=== PATIENT | female | born 1990 | race Caucasian/White ===

== ENCOUNTER → 2017-09-01 | Outpatient (CLI) | payer MEDICAID ==
[2017-09-01 08:29] LABS: Appearance,Urine Clear (Clear); Bilirubin,Urine Negative (Negative); Blood,Urine Negative (Negative); Color,Urine Yellow; Glucose,Urine (UA) Negative (Negative); HCT 36.5 % (34.0-46.0); HGB 12.6 gm/dL (11.4-16.0); Ketones,Urine Negative (Negative); Leukocyte Esterase,Urine Negative (Negative); MCH 31.1 pg (25.0-35.0); MCHC 34.5 g/dL (31.0-37.0); MCV 90.4 fL (80.0-100.0); Mean Platelet Volume 7.6; Nitrite,Urine Negative (Negative); PH, Urine 5.5 (5.0-8.0); Platelet Count 242 k/uL (150-450); Protein,Urine Trace (Negative); RBC 4.04 m/uL (3.80-5.40); RDW 12.3 % (11.5-15.5); Specific Gravity,Urine 1.029 (1.001-1.035); WBC 12.1 k/uL (3.8-10.6)
[2017-09-01 08:53] LABS: Glucose 71 mg/dL (74-99)
[2017-09-01 17:36] LABS: HIV AB P24 Non-Reactive (Non-Reactive); HIV P24 AG Non-Reactive (Non-Reactive)
[2017-09-02 05:05] LABS: Toxoplasma Antibody (IgG) <3.0 IU/mL (<7.2); Toxoplasma Antibody (IgM) <3.0 AU/mL (<8.0)
[2017-09-02 14:04] LABS: C. trachomatis,PCR Negative (Neg,Equiv); Chlamydia trachomatis Source Urine; N. gonorrhoeae,PCR Negative (Neg,Equiv); Neisseria Source Urine
== END | disposition home or self-care (01) ==
LOC: LABWHC1 07:17
PROVIDERS: ATTEND Obstetrics & Gynecology
DX: Z34.01 Encounter for supervision of normal first pregnancy, first trimester (principal); Z3A.00 Weeks of gestation of pregnancy not specified
CPT/HCPCS: 36415; 81003; 82565; 82947; 85027; 86592; 86762; 86777; 86778; 86850; 86900; 86901; 87086; 87340; 87390; 87491; 87591

== ENCOUNTER → 2017-10-06 | Outpatient (CLI) | payer MEDICAID ==
--- NOTE | 2017-10-06 11:11 | US ---
EXAMINATION TYPE: US OB anatomy transabd DATE OF EXAM: 10/06/2017 COMPARISON: NONE HISTORY: O36.62X0 Maternal care for excessive growth LGA TECHNIQUE: Transabdominal (TA) EXAM MEASUREMENTS: GESTATIONAL AGE / DATING Physician Established: (18 weeks/5 days) EDC: 03/04/18 Dates by LMP: (18 weeks/5 days) EDC: 03/04/18 Dates by First Scan: no prior scan Dates by Current Scan for: (18 weeks/2 days) EDC: 03/07/18 SURVEY IUP: Single PLACENTA: Anterior PREVIA: marginal to complete JACK: 15.5 cm Normal CERVICAL LENGTH (transabdominal: norm > 3.0cm): 4.6 cm BIOMETRY PRESENTATION: Breech LIE: Transverse lie with head maternal RT BPD: 4.2 cm 18 weeks / 5 days HC: 15.3 cm 18 weeks / 2 days AC: 13.1 cm 18 weeks / 4 days FL: 2.7 cm 18 weeks / 2 days ESTIMATED WEIGHT IN GRAMS: 241 grams ESTIMATED WEIGHT IN LBS/OZ: 0 lbs. 9 oz. WEIGHT PERCENTAGE BASED ON ESTABLISHED DATE: 30.6 % HC/AC: 1.17 Normal FL/AC: 17.78 Normal HEART RATE: 128 bpm RHYTHM: Normal ANATOMY SEEN (within normal limits): * Lateral Vent (< 1 cm) 0.6 cm * Cisterna Magna (< 1.1 cm) 0.3 cm * Nuchal Fold (< 0.6 cm) 0.3 cm * Cerebellum (varies with age) 1.7 cm Choroid Plexus (bilateral) Midline Falx Cavus Septi Pellucidi Four Chamber Heart - echogenic focus noted Outflow tracts: LVOT/RVOT Stomach Situs Nose / Lips Diaphragm Kidneys (bilateral) Bladder Cord Insert Three Vessel Cord Longitudinal Spine Transverse Spine Arms (bilateral) Legs (bilateral) Single viable IUP 18wks/2days with ROBERT of 03/07/18 . Marginal to complete placenta previa. Possible echogenic focus noted within 4 chamber heart. This has been associated with genetic anomalies. Consi jessika additional workup. IMPRESSION: Single intrauterine gestation estimated at 18 weeks 2 days gestation based on current ultrasound kane urements. This would've a calculated EDC of 03/07/2018. Cardiac activity measures 128 bpm. 2. Echogenic focus within the four-chamber heart view. This finding is been associated with genetic a nomalies. Consider additional workup. 3. Estimated weight based on established dating is in the 31st percentile.
== END | disposition home or self-care (01) ==
LOC: RADUSWWP 08:48
PROVIDERS: ATTEND Obstetrics & Gynecology
DX: O36.62X0 Maternal care for excessive fetal growth, second trimester, not applicable or unspecified (principal); Z3A.18 18 weeks gestation of pregnancy
CPT/HCPCS: 76811

== ENCOUNTER → 2017-10-21 | Outpatient (CLI) | payer MEDICAID ==
--- NOTE | 2017-10-21 09:52 | US ---
EXAMINATION TYPE: US OB limited DATE OF EXAM: 10/21/2017 COMPARISON: CLINICAL HISTORY: Z36 Follow up to abnormal u/s. Follow up EIF and Placenta EXAM PERFORMED: Transabdominal (TA) GESTATIONAL AGE / DATING Physician Established: (20 weeks/6 days) EDC: 03/04/2018 No growth performed on today?s study per ordering physician SURVEY PLACENTA: Anterior PREVIA: No Previa CERVICAL LENGTH (transabdominal: norm > 3.0cm): 4.1 cm PRESENTATION: Variable LIE: Transverse with head maternal Right HEART RATE: 129 bpm RHYTHM: Normal IMPRESSION: 1.EIF seen in left ventricle of the heart. Appropriate follow-up recommended 2. Tip of placenta is 3.6 cm away from cervical internal os.
== END | disposition home or self-care (01) ==
LOC: RADUSWWP 08:52
PROVIDERS: ATTEND Obstetrics & Gynecology
DX: Z36.9 Encounter for antenatal screening, unspecified (principal); Z3A.00 Weeks of gestation of pregnancy not specified
CPT/HCPCS: 76815

== ENCOUNTER → 2017-12-01 | Outpatient (CLI) | payer MEDICAID ==
[2017-12-01 09:15] LABS: HCT 35.6 % (34.0-46.0); HGB 11.5 gm/dL (11.4-16.0); MCH 29.8 pg (25.0-35.0); MCHC 32.3 g/dL (31.0-37.0); MCV 92.3 fL (80.0-100.0); Mean Platelet Volume 7.6; Platelet Count 225 k/uL (150-450); RBC 3.86 m/uL (3.80-5.40); RDW 13.4 % (11.5-15.5); WBC 10.1 k/uL (3.8-10.6)
== END | disposition home or self-care (01) ==
LOC: LABWHC1 07:53
PROVIDERS: ATTEND Obstetrics & Gynecology
DX: Z34.82 Encounter for supervision of other normal pregnancy, second trimester (principal); Z3A.00 Weeks of gestation of pregnancy not specified
CPT/HCPCS: 36415; 82950; 85027

== ENCOUNTER → 2017-12-04 | Outpatient (CLI) | payer MEDICAID ==
[2017-12-04 10:57] LABS: Glucose 3 Hour, Gest 127 mg/dL
== END ==
LOC: LABWHC1 06:59
PROVIDERS: ATTEND Obstetrics & Gynecology
DX: O99.810 Abnormal glucose complicating pregnancy (principal); Z3A.00 Weeks of gestation of pregnancy not specified
CPT/HCPCS: 36415; 82951; 82952

== ENCOUNTER → 2018-01-08 | Outpatient (CLI) | payer MEDICAID ==
--- NOTE | 2018-01-08 13:12 | US ---
EXAMINATION TYPE: US OB >= 14 wk fetus DATE OF EXAM: 01/08/2018 COMPARISON: 2017October 06, 2017 PT HAD HIGH RISK EVAL FOR HEART AT [facility] EXAM WAS NORMAL CLINICAL HISTORY: O36.63XO large for dates TECHNIQUE: Transabdominal (TA) GESTATIONAL AGE / DATING Physician Established: (32 weeks/0 days) EDC: 03/05/18 Dates by LMP: (32 weeks/0 days) EDC: 03/05/18 Dates by First Scan: (32 weeks/0 days) EDC: 03/05/18 Dates by Current Scan: (32 weeks/0 days) EDC: 03/05/18 Beta HCG (if available): na SURVEY IUP: Single PLACENTA: anterior PREVIA: No Previa JACK: 12 cm Normal CERVICAL LENGTH (transabdominal: norm > 3.0cm): 4.5 cm BIOMETRY PRESENTATION: Vertex LIE: Longitudinal BPD: 8.1 cm 32 weeks / 4 days HC: 28.8 cm 31 weeks / 5 days AC: 26.7 cm 31 weeks / 5 days FL: 6.4 cm 32 weeks / 1 days ESTIMATED WEIGHT IN GRAMS: 1798 grams ESTIMATED WEIGHT IN LBS/OZ: 3 lbs. 15 oz. WEIGHT PERCENTAGE BASED ON ESTABLISHED DATES: 27% HC/AC: 1.08 Normal FL/AC: 24 Normal HEART RATE: 142 bpm RHYTHM: Normal Single live intrauterine gestation is redemonstrated. Normal cephalad presentation to fetus is curren tly seen. There is no ultrasound evidence for placenta previa. Amniotic fluid index is within normal limits. Normal cephalad presentation to fetus is identified. heart rate is regular and within n ormal limits. biometry measurements are congruent and felt within normal limits. IMPRESSION: As above
== END | disposition home or self-care (01) ==
LOC: RADUSWWP 10:52
PROVIDERS: ATTEND Obstetrics & Gynecology
DX: O36.63X0 Maternal care for excessive fetal growth, third trimester, not applicable or unspecified (principal); Z3A.32 32 weeks gestation of pregnancy
CPT/HCPCS: 76805

== ENCOUNTER 2018-03-06 12:25 | Inpatient (IN) | payer MEDICAID ==
[2018-03-06] MEDS ORDERED: DINOPROSTONE 10 MG INSERT.ER VAGINAL ONE (12:51)
[2018-03-06 13:00] VITALS: RESP 16; BMI 26.4
[2018-03-06] MEDS: LACTATED RINGERS 1,000 ML IV SCH ×2 (13:26→21:10)
[2018-03-06] MEDS ORDERED: OXYTOCIN 10 UNIT/ML 1 ML VIAL IM PRN (15:22)
[2018-03-06] MEDS ORDERED: CARBOPROST TROMETHAMINE 250 MCG/ML 1 ML AMP IM PRN (15:22)
[2018-03-06] MEDS ORDERED: LIDOCAINE 0.5% (PF) 5 MG/ML (50 ML SDV) SQ PRN (15:22)
[2018-03-06] MEDS ORDERED: METHYLERGONOVINE 0.2 MG/ML 1 ML AMP IM PRN (15:22)
[2018-03-06] MEDS ORDERED: TERBUTALINE 1 MG/ML VIAL SQ PRN (15:22)
[2018-03-06] MEDS ORDERED: OXYTOCIN 20 UNITS/1000 ML NS 1,000 ML IV SCH (15:30)
[2018-03-06 15:37] LABS: Basophils % (A) 0 %; Eosinophils # (A) 0.1 k/uL (0-0.7); Eosinophils % (A) 1 %; HCT 40.5 % (34.0-46.0); HGB 13.3 gm/dL (11.4-16.0); Lymphocytes # (A) 1.7 k/uL (1.0-4.8); Lymphocytes % (A) 16 %; MCH 30.6 pg (25.0-35.0); MCHC 32.8 g/dL (31.0-37.0); MCV 93.3 fL (80.0-100.0); Mean Platelet Volume 8.5; Monocytes # (A) 0.5 k/uL (0-1.0); Monocytes % (A) 5 %; Neutrophils # (A) 8.3 k/uL (1.3-7.7); Neutrophils % (A) 77 %; Platelet Count 208 k/uL (150-450); RBC 4.34 m/uL (3.80-5.40); RDW 13.1 % (11.5-15.5); WBC 10.9 k/uL (3.8-10.6)
[2018-03-06] MEDS ORDERED: ROPIVACAINE 5MG/ML 20ML VIAL ONE (16:20)
[2018-03-06] MEDS ORDERED: fentaNYL (PF) 50 MCG/ML 5 ML AMP ONE (16:20)
[2018-03-06] MEDS ORDERED: SODIUM CHLORIDE 0.9% 100 ML BAG ONE (16:20)
[2018-03-06] MEDS ORDERED: diphenhydrAMINE 25 MG CAP PO PRN (22:31)
[2018-03-06] MEDS ORDERED: diphenhydrAMINE 50 MG/ML 1 ML VIAL IVP PRN ×2 (22:31)
[2018-03-06] MEDS ORDERED: LANOLIN CREAM 5 GM TUBE TOPICAL PRN (22:31)
[2018-03-06] MEDS ORDERED: ZOLPIDEM 5 MG TAB PO PRN (22:31)
[2018-03-06] MEDS ORDERED: BENZOCAINE/MENTHOL SPRAY 1 GM/SPRAY AEROSOL TOPICAL PRN (22:31)
[2018-03-06] MEDS ORDERED: MEASLES-MUMPS-RUBELLA VACC/PF 12,500 UNIT/0.5 ML VIAL SQ ONE (22:31)
[2018-03-06] MEDS ORDERED: ACETAMINOPHEN TAB 325 MG TAB PO PRN (22:31)
[2018-03-06] MEDS ORDERED: HYDROCORTISONE 2.5% RECTAL CREAM 30 GM TUBE RECTAL PRN (22:31)
[2018-03-06] MEDS ORDERED: SIMETHICONE 80 MG CHEWABLE PO PRN (22:31)
[2018-03-06] MEDS ORDERED: diphenhydrAMINE 50 MG CAP PO PRN (22:31)
[2018-03-06] MEDS ORDERED: WITCH HAZEL 1 EACH MED..PAD TOPICAL PRN (22:31)
--- NOTE | 2018-03-06 22:34 | P.HPOB ---
History of Present Illness H&P Date: 03/06/18 Chief Complaint: Intrauterine at term: Oligohydramnios Patient is a 28-year-old at 40 weeks gestation who for last few weeks has had borderline oligohydramnios during that time she is receiving nonstress tests and serial ultrasounds to verify stability. We did discuss done a couple of occasions induction but she was relatively adamant less she was truly oligohydramnios and she did not want to be induced. Today however on her ultrasound her JACK was 5 and therefore decision to move forward with induction was made. At initial presentation she was dilated to 1-2 cm 80% effaced and -2 station. Artificial rupture membranes was performed and clear fluid is noted. Her course otherwise was unremarkable and she was feeling well at this time. Pertinent labs did include O+ blood type, Rh antibody was negative. Rubella nonimmune. Hepatitis B surface antigen RPR and GBS were all negative. We'll plan augmentation of labor and she expects to use an epidural for analgesia. Past Medical History Past Medical History: No Reported History History of Any Multi-Drug Resistant Organisms: None Reported Past Surgical History: Orthopedic Surgery Additional Past Surgical History / Comment(s): right shoulder Past Anesthesia/Blood Transfusion Reactions: No Reported Reaction Past Psychological History: No Psychological Hx Reported Smoking Status: Never smoker Past Alcohol Use History: Occasional Past Drug Use History: None Reported - Past Family History Mother Additional Family Medical History / Comment(s): breast cancer, sister breast cancer Medications and Allergies Home Medications Medication Instructions Recorded Confirmed Type Ibuprofen [Motrin] 600 mg PO Q6HR PRN #20 tab 03/01/16 Rx Tamsulosin HCl [Flomax] 0.4 mg PO DAILY #10 cap 03/01/16 Rx Allergies Allergy/AdvReac Type Severity Reaction Status Date / Time No Known Allergies Allergy Verified 03/01/16 18:56 Exam Osteopathic Statement: *. No significant issues noted on an osteopathic structural exam other than those noted in the History and Physical/Consult. Vital Signs Temp Pulse Resp BP 03/06/18 12:49 98.6 F 94 16 120/93 Intake and Output 03/06/18 03/06/18 03/06/18 06:59 14:59 22:59 Intake Total 250 Balance 250 Intake: Oral 250 Other: # Voids 1 Weight 78.925 kg - OBG Physical Exam Breast: both: normal (no masses) Abdomen: bowel sounds normal, no diffuse tenderness, no bruit present, no guarding noted, no hepatomegaly, no splenomegaly, no mass Vulva: both: normal Vagina: normal moisture, no discharge Cervix: no lesion, no discharge Uterus: normal size, normal contour Adnexa: both: normal Anus/Rectum: normal perianal skin, no rectal mass, no hemorrhoids, heme negative Results Result Diagrams: 03/06/18 13:20 Abnormal Lab Results - Last 24 Hours (Table) 03/06/18 Range/Units 13:20 WBC 10.9 H (3.8-10.6) k/uL Neutrophils # 8.3 H (1.3-7.7) k/uL
--- NOTE | 2018-03-06 22:35 | P.PROBDLV ---
Vaginal Delivery Note - . Vaginal Delivery Note: Patient progressed to complete and pushed with spontaneous vaginal delivery of a viable female over an intact perineum. Falling deliver the head a nuchal cord 1 was noted but the baby was delivered through the nuchal cord with gentle downward and upward traction. Once baby was delivered mouth nares were bulb suctioned and baby was placed on mother's abdomen where the umbilical cord was allowed to pulsate for 40 seconds prior to clamping and cutting. Once this was accomplished nursery personnel was present to assume care. Placenta was then delivered intact and Pitocin was added to the IV. scores were 8 and 9 at one and 5 minutes respectively and the weight was 6 lbs. 11 oz. Both mother and baby are stable on delivery.
[2018-03-07] MEDS: SENNOSIDES-DOCUSATE SODIUM 1 EACH TAB PO SCH ×2 (09:24→20:49)
[2018-03-07] MEDS: IBUPROFEN 600 MG TAB PO PRN (11:59)
--- NOTE | 2018-03-07 12:32 | P.PNOBGVD ---
Subjective - Subjective Principal diagnosis: day 1 Interval history: Overall doing very well. She is ambulating, voiding and tolerating her diet. She voices no complaint. Vital signs are stable and afebrile. Patient reports: Reports appetite normal [place]: doing well Objective - Latest Vital Signs Latest vital signs: Vital Signs Temp Pulse Pulse Resp BP 03/07/18 12:00 98.2 F 56 L 16 112/62 03/07/18 08:00 98.5 F 51 L 16 118/81 03/07/18 04:00 98.6 F 62 16 110/63 03/07/18 00:34 98 F 69 16 108/70 03/07/18 00:04 79 16 105/64 03/06/18 23:34 62 16 114/79 03/06/18 23:19 65 16 113/79 03/06/18 23:04 77 16 113/75 03/06/18 22:49 96 16 126/69 03/06/18 22:34 90 16 109/67 03/06/18 12:49 98.6 F 94 16 120/93 Intake and Output 03/06/18 03/07/18 03/07/18 22:59 06:59 14:59 Intake Total 1000.0 Output Total 100 Balance 900.0 Intake: Intake, IV Titration 1000.0 Amount Oxytocin 20 Units/1000 ml 1000.0 Ns 1,000 ml @ 1 MILLIUNIT/MIN 3 mls/hr IV .Q24H [facility] Rx#:[id number] Output: Urine 100 Other: # Voids 1 1 - Exam Lungs: bilateral: normal Chest: Normal S1, Normal S2 Extremities: Present: normal Abdomen: Present: normal appearance, soft Uterus: Present: normal, firm - Labs Labs: Abnormal Lab Results - Last 24 Hours (Table) 03/06/18 Range/Units 13:20 WBC 10.9 H (3.8-10.6) k/uL Neutrophils # 8.3 H (1.3-7.7) k/uL
[2018-03-08] MEDS: IBUPROFEN 600 MG TAB PO PRN (04:42)
[2018-03-08 08:35] VITALS: BP 111/72; PULSE 56; TEMP 98.1
[2018-03-08] MEDS: SENNOSIDES-DOCUSATE SODIUM 1 EACH TAB PO SCH (08:38)
[2018-03-08] MEDS ORDERED: MEASLES-MUMPS-RUBELLA VACC/PF 12,500 UNIT/0.5 ML VIAL SQ ONE (09:46)
--- NOTE | 2018-03-08 10:10 | P.DS ---
Providers Date of admission: 03/06/18 12:25 Expected date of discharge: 03/08/18 Attending physician: Andres Root Primary care physician: Stated None Hospital Course: Patient is doing very well day 2. She is ambulating, voiding and she is tolerating her diet. She voices no complaint. Vital signs are stable and afebrile. Heart regular, lungs clear, extremities without pain. Abdomen is soft uterus is firm and lochia is reported be light. Assessment day 2. Plan discharged home follow me in 6 weeks. All other questions were answered the patient prior discharge and she is stable for discharge at this time. Patient Condition at Discharge: Good Plan - Discharge Summary Discharge Rx Participant: Yes New Discharge Prescriptions: No Action RX: Ibuprofen [Motrin] 600 mg PO Q6HR PRN #20 tab PRN Reason: Pain Tamsulosin HCl [Flomax] 0.4 mg PO DAILY #10 cap Discharge Medication List RX: Ibuprofen [Motrin] 600 mg PO Q6HR PRN #20 tab 03/01/16 [Rx] Tamsulosin HCl [Flomax] 0.4 mg PO DAILY #10 cap 03/01/16 [Rx] Follow up Appointment(s)/Referral(s): Andres Root DO [Doctor of Osteopathic Medicine] - 1 Week Activity/Diet/Wound Care/Special Instructions: No heavy lifting, limit stairs and driving, and pelvic rest. If any high temperatures, heavy bleeding, severe pain call my office Discharge Disposition: HOME SELF-CARE
== END 2018-03-08 12:07 | disposition home or self-care (01) | DRG 807 ==
LOC: 4FBP 12:25
PROVIDERS: ADMIT Obstetrics & Gynecology; ATTEND Obstetrics & Gynecology
PROC: 10907ZC Drainage of Amniotic Fluid, Therapeutic from Products of Conception, Via Natural or Artificial Opening (ICD-10-PCS; principal; 2018-03-06)
PROC: 10E0XZZ Delivery of Products of Conception, External Approach (ICD-10-PCS; principal; 2018-03-06)
PROC: 3E033VJ Introduction of Other Hormone into Peripheral Vein, Percutaneous Approach (ICD-10-PCS; principal; 2018-03-06)
PROC: 00HU33Z Insertion of Infusion Device into Spinal Canal, Percutaneous Approach (ICD-10-PCS; principal; 2018-03-06)
PROC: 3E0R3NZ Introduction of Analgesics, Hypnotics, Sedatives into Spinal Canal, Percutaneous Approach (ICD-10-PCS; principal; 2018-03-06)
DX: O41.00X0 Oligohydramnios, unspecified trimester, not applicable or unspecified (principal); Z37.0 Single live birth; O69.81X0 Labor and delivery complicated by cord around neck, without compression, not applicable or unspecified; Z3A.40 40 weeks gestation of pregnancy; Z79.1 Long term (current) use of non-steroidal anti-inflammatories (NSAID); O48.0 Post-term pregnancy
CPT/HCPCS: 85025; 86850; 86900; 86901; 88307; 90707

== ENCOUNTER → 2018-03-06 | Outpatient (CLI) | payer MEDICAID ==
--- NOTE | 2018-03-06 14:45 | US ---
EXAMINATION TYPE: US OB >= 14 wk fetus DATE OF EXAM: 03/06/2018 COMPARISON: US's CLINICAL HISTORY: O48.0 POST DATE TECHNIQUE: Transabdominal (TA) GESTATIONAL AGE / DATING Physician Established: (40 weeks/2 days) EDC: 03/04/2018 Dates by LMP: (40 weeks/2 days) EDC: 03/04/2018 Dates by First Scan: (40 weeks/2 days) EDC: 03/04/2018 Dates by Current Scan: (37 weeks/2 days) EDC: 03/25/2018 SURVEY IUP: Single PLACENTA: Anterior PREVIA: No Previa JACK: 5.0 cm Oligohydramnios CERVICAL LENGTH (transabdominal: norm > 3.0cm): 3.9 cm BIOMETRY PRESENTATION: Vertex BPD: 9.1 cm 36 weeks / 6 days HC: 32.7 cm 37 weeks / 0 days AC: 34.2 cm 38 weeks / 1 days FL: 7.5 cm 38 weeks / 1 days ESTIMATED WEIGHT IN GRAMS: 3323 grams ESTIMATED WEIGHT IN LBS/OZ: 7 lbs. 5 oz. WEIGHT PERCENTAGE BASED ON ESTABLISHED DATES: 22.9% HC/AC: 0.95 Normal FL/AC: 21.8 Normal HEART RATE: 157 bpm RHYTHM: Normal IMPRESSION: 1. Single intrauterine gestation estimated at 37 weeks 2 days gestation based on the current ultrasou nd measurements. Correlate this with the physician established dating of 40 weeks 2 days gestation. 2. Estimated weight based on established dates is in the 23rd percentile. 3323 g. 3. Cardiac activity measures 157 bpm.
== END | disposition home or self-care (01) ==
LOC: RADUSWWP 10:29
PROVIDERS: ATTEND Obstetrics & Gynecology
DX: O48.0 Post-term pregnancy (principal); Z3A.37 37 weeks gestation of pregnancy
CPT/HCPCS: 76805

== ENCOUNTER → 2019-03-11 | Outpatient (CLI) | payer MEDICAID ==
[2019-03-11 14:18] LABS: Basophils # (A) 0.1 k/uL (0-0.2); Basophils % (A) 1 %; Eosinophils # (A) 0.4 k/uL (0-0.7); Eosinophils % (A) 4 %; HCT 42.2 % (34.0-46.0); HGB 13.6 gm/dL (11.4-16.0); Lymphocytes % (A) 20 %; MCH 30.5 pg (25.0-35.0); MCHC 32.2 g/dL (31.0-37.0); MCV 94.7 fL (80.0-100.0); Mean Platelet Volume 7.3; Monocytes # (A) 0.6 k/uL (0-1.0); Monocytes % (A) 6 %; Neutrophils % (A) 69 %; Platelet Count 240 k/uL (150-450); RBC 4.45 m/uL (3.80-5.40); RDW 12.1 % (11.5-15.5); WBC 10.1 k/uL (3.8-10.6)
[2019-03-11 20:24] LABS: African American GFR (CKD) 114.7 (60.0-200.0); Albumin 4.1 g/dL (3.80-4.90); Albumin/Globulin Ratio 1.86 (1.60-3.17); Anion Gap 10.4 mmol/L (4.00-12.00); BUN/Creat Ratio 12.5 Ratio (12.00-20.00); Calcium 9.1 mg/dL (8.7-10.3); Carbon Dioxide 22.6 mmol/L (21.6-31.8); Chol/HDL Ratio 2.17; Globulin 2.2 g/dL (1.6-3.3); LDL Cholesterol,Calculated 63.2 mg/dL (0.0-131.0); Potassium 4.1 mmol/L (3.5-5.5); Total Bilirubin 0.5 mg/dL (0.2-1.2); Total Protein 6.3 g/dL (6.2-8.2); VLDL Calculation 17.8 mg/dL (5.00-40.00)
== END | disposition home or self-care (01) ==
LOC: LABWHC1 12:55
PROVIDERS: ATTEND Nurse Practitioner Family
DX: Z00.00 Encounter for general adult medical examination without abnormal findings (principal); F41.1 Generalized anxiety disorder
CPT/HCPCS: 36415; 80053; 80061; 84439; 84443; 85025

== ENCOUNTER → 2019-04-22 | Outpatient (CLI) | payer MEDICAID ==
--- NOTE | 2019-04-22 09:41 | US ---
EXAMINATION TYPE: Transabdominal DATE OF EXAM: 04/22/2019 8:53 AM COMPARISON: NONE CLINICAL HISTORY: Z36 confirm dates. confirm dates EXAM PERFORMED: Transabdominal (TA) EXAM MEASUREMENTS: GESTATIONAL AGE / DATING Physician Established: Not yet established Dates by LMP: (11 weeks/0 days) EDC: 11/11/19 Dates by First Scan: No previous this is first scan Dates by Current Scan for: (11 weeks/4 days) EDC: 11/07/19 MATERNAL ANATOMY Uterus: 11.9 x 5.9 x 8.8cm Right Ovary: 3.1 x 1.3 x 1.2cm Left Ovary: 2.8 x 1.9 x 1.3cm Post CDS / Adnexa: appears wnl Presence of free fluid: no Presence of corpus luteal cyst: yes, left ovary = 2.0 x 1.3 x 1.2cm GESTATION / SURVEY CRL: 4.7cm (11 weeks/4 days) Yolk Sac (normal less than 6mm): not seen Heart Rate: 162 bpm Rhythm: Normal IUP: Viable IUP Date of LMP: 02/04/19 Beta HcG (if available): Not available at this time Single viable IUP 11wks/4days with ROBERT of 11/07/19. Corpus luteum left ovary IMPRESSION: Single viable intrauterine corresponding to ultrasound age of 11 weeks 4 days w ith estimated date of delivery 11/07/2019 by today's exam.
== END | disposition home or self-care (01) ==
LOC: RADUSWWP 08:38
PROVIDERS: ATTEND Obstetrics & Gynecology
DX: Z36.89 Encounter for other specified antenatal screening (principal); Z3A.11 11 weeks gestation of pregnancy
CPT/HCPCS: 76801

== ENCOUNTER → 2019-04-27 | Outpatient (CLI) | payer MEDICAID ==
[2019-04-27 08:08] LABS: HCT 38.9 % (34.0-46.0); HGB 12.8 gm/dL (11.4-16.0); MCH 30.2 pg (25.0-35.0); MCHC 32.9 g/dL (31.0-37.0); MCV 91.9 fL (80.0-100.0); Mean Platelet Volume 7.9; Platelet Count 246 k/uL (150-450); RBC 4.23 m/uL (3.80-5.40); RDW 12.1 % (11.5-15.5); WBC 10.7 k/uL (3.8-10.6)
[2019-04-27 11:49] LABS: African American GFR (CKD) 114.7 (60.0-200.0); Non-African American GFR(CKD) 98.9 (60.0-200.0)
[2019-04-27 12:14] LABS: Hepatitis B Surface Antigen Non-Reactive (Non-Reactive)
[2019-04-27 13:14] LABS: HIV 1 AB Non-Reactive (Non-Reactive); HIV 2 AB Non-Reactive (Non-Reactive); HIV AB P24 Non-Reactive (Non-Reactive); HIV P24 AG Non-Reactive (Non-Reactive)
[2019-04-29 03:14] LABS: Toxoplasma Antibody (IgG) <3.0 IU/mL (<7.2); Toxoplasma Antibody (IgM) <3.0 AU/mL (<8.0)
== END | disposition home or self-care (01) ==
LOC: LABWHC1 07:15
PROVIDERS: ATTEND Obstetrics & Gynecology
DX: O26.811 Pregnancy related exhaustion and fatigue, first trimester (principal); Z3A.00 Weeks of gestation of pregnancy not specified
CPT/HCPCS: 36415; 82565; 82947; 85027; 86762; 86777; 86778; 86780; 86850; 86870; 86880; 86900; 86901; 87340; 87390; 87491; 87591

== ENCOUNTER → 2019-06-17 | Outpatient (CLI) | payer MEDICAID ==
--- NOTE | 2019-06-17 13:15 | US ---
EXAMINATION TYPE: US OB anatomy transabd DATE OF EXAM: 06/17/2019 COMPARISON: 04/22/2019 HISTORY: 29-year-old female O36.62X0 Large for dates 2nd trimester. Anatomy scan TECHNIQUE: Transabdominal (TA) FINDINGS: EXAM MEASUREMENTS: GESTATIONAL AGE / DATING Physician Established: (19 weeks/0 days) EDC: 11/11/2019 Dates by LMP: Unknown Dates by First Scan: (19 weeks/4 days) EDC: 11/07/2019 Dates by Current Scan for: (19 weeks/2 days) EDC: 11/09/2019 SURVEY IUP: Single PLACENTA: Posterior PREVIA: No previa JACK: 12.4 cm Normal CERVICAL LENGTH (transabdominal: norm > 3.0cm): 3.2 cm BIOMETRY PRESENTATION: Breech BPD: 4.3 cm 19 weeks / 1 days HC: 15.3 cm 18 weeks / 3 days AC: 13.9 cm 19 weeks / 3 days FL: 3.2 cm 20 weeks / 0 days ESTIMATED WEIGHT IN GRAMS: 294 grams ESTIMATED WEIGHT IN LBS/OZ: 0 lbs. 10 oz. WEIGHT PERCENTAGE BASED ON ESTABLISHED DATE: 73 % HC/AC: 1.10 Normal FL/AC: 23 Normal HEART RATE: 142 bpm RHYTHM: Normal ANATOMY SEEN (within normal limits): Lateral Vent (< 1 cm) 0.7 cm Cisterna Magna (< 1.1 cm) 0.3 cm Nuchal Fold (< 0.6 cm) 0.3 cm Cerebellum (varies with age) 1.9 cm Choroid Plexus (bilateral) Midline Falx Cavus Septi Pellucidi Four Chamber Heart Outflow tracts: LVOT/RVOT Stomach Situs Nose / Lips Diaphragm Kidneys (bilateral)= 3mm renal pelvis bilaterally -- follow-up can be considered. Bladder Cord Insert Three Vessel Cord Longitudinal Spine Transverse Spine Arms (bilateral) Legs (bilateral) Stock Associate notes: Single, viable IUP/ Renal pelvis 3mm bilaterally, otherwise unremarkable exam IMPRESSION: 1. Single intrauterine with established gestational age of 19 weeks 0 days. Current ultraso und biometry is concordant (19 weeks 2 days) placing the child at the 73rd percentile for weight. 2. Prominent bilateral renal pelves at 3 mm each. This falls within acceptable limits (normal <4 mm). Follow-up can be considered to reassess. 3. Otherwise, the anatomy appears normal.
== END | disposition home or self-care (01) ==
LOC: RADUSWWP 09:10
PROVIDERS: ATTEND Obstetrics & Gynecology
DX: O36.62X1 Maternal care for excessive fetal growth, second trimester, fetus 1 (principal); Z3A.19 19 weeks gestation of pregnancy
CPT/HCPCS: 76811

== ENCOUNTER 2019-07-29 18:30 | Emergency (ER) | payer MEDICAID ==
[2019-07-29 18:38] VITALS: BP 124/77; PULSE 88; RESP 20; TEMP 97.8
[2019-07-29 19:14] LABS: Basophils % (A) 0 %; Eosinophils # (A) 0.2 k/uL (0-0.7); Eosinophils % (A) 1 %; HCT 39.3 % (34.0-46.0); HGB 12.9 gm/dL (11.4-16.0); Lymphocytes # (A) 1.5 k/uL (1.0-4.8); Lymphocytes % (A) 12 %; MCH 30.6 pg (25.0-35.0); MCHC 32.9 g/dL (31.0-37.0); MCV 92.9 fL (80.0-100.0); Mean Platelet Volume 7.5; Monocytes # (A) 0.6 k/uL (0-1.0); Monocytes % (A) 5 %; Neutrophils # (A) 9.7 k/uL (1.3-7.7); Neutrophils % (A) 79 %; Platelet Count 247 k/uL (150-450); RBC 4.23 m/uL (3.80-5.40); RDW 13.4 % (11.5-15.5); WBC 12.3 k/uL (3.8-10.6)
[2019-07-29 19:16] LABS: Appearance,Urine Cloudy (Clear); Bacteria,Urine Occasional /hpf; Bilirubin,Urine Negative (Negative); Blood,Urine Negative (Negative); Color,Urine Light Yellow; Glucose,Urine (UA) Negative (Negative); Ketones,Urine Negative (Negative); Leukocyte Esterase,Urine Moderate (Negative); Mucus,Urine Rare /hpf; Nitrite,Urine Negative (Negative); PH, Urine 6.5 (5.0-8.0); Protein,Urine Negative (Negative); RBC,Urine 3 /hpf (0-5); Specific Gravity,Urine 1.007 (1.001-1.035); Squamous Epithelial Cell,Urine 23 /hpf (0-4); Urobilinogen,Urine <2.0 mg/dL (<2.0); WBC,Urine 5 /hpf (0-5)
[2019-07-29 19:23] LABS: ALT 15 U/L (4-34); AST 23 U/L (14-36); African American GFR (CKD) >90 (>60 ml/min/1.73 sqM); Albumin 3.5 g/dL (3.5-5.0); Alkaline Phosphatase 60 U/L (38-126); Anion Gap 7 mmol/L; Blood Urea Nitrogen 7 mg/dL (7-17); Calcium 8.6 mg/dL (8.4-10.2); Carbon Dioxide 23 mmol/L (22-30); Chloride 105 mmol/L (98-107); Glucose 87 mg/dL (74-99); Non-African American GFR(CKD) >90 (>60 ml/min/1.73 sqM); Potassium 3.9 mmol/L (3.5-5.1); Sodium 135 mmol/L (137-145); Total Bilirubin 0.2 mg/dL (0.2-1.3); Total Protein 6.5 g/dL (6.3-8.2)
[2019-07-29] MEDS ORDERED: cefTRIAXone IN SWFI 1,000 MG/10 ML SYRINGE IVP STA (19:41)
--- NOTE | 2019-07-29 19:45 | ED ---
General Adult HPI - General Chief complaint: Abdominal Pain Stated complaint: 24wks preg, rt sided flank pain Time Seen by Provider: 07/29/19 18:39 Source: patient Mode of arrival: ambulatory Limitations: no limitations - History of Present Illness Initial comments: Patient is a 29-year-old female, currently 24 weeks , presenting to emergency Department with complaints of right flank pain has been going on for 3 days. Patient states the first 2 days the pain was intermittent and then today has been very constant. She does admit to increasing urinary frequency, urgency, dysuria. Denies history of kidney stones. Patient rates pain approx imately 5/10. She states she took some Tylenol earlier today. She did have one episode of vomiting yesterday. No nausea or vomiting today. She denies fever, chills, abdominal pain, vaginal bleeding. Her TECHNICAL PUBLICATIONS MANAGER is Dr. Root. Her has been uncomplicated thus far. Upon arrival to the ER, her vitals are stable. - Related Data Home Medications Medication Instructions Recorded Confirmed Lpp-Aosl-Sdifh Acid 1 cap PO DAILY 07/29/19 07/29/19 [-U Capsule (formulary)] Previous Rx's Medication Instructions Recorded Cephalexin [Keflex] 500 mg PO BID 7 Days #14 cap 07/29/19 Allergies Allergy/AdvReac Type Severity Reaction Status Date / Time No Known Allergies Allergy Verified 07/29/19 19:42 Review of Systems ROS Statement: Those systems with pertinent positive or pertinent negative responses have been documented in the HPI. ROS Other: All systems not noted in ROS Statement are negative. Past Medical History Past Medical History: No Reported History History of Any Multi-Drug Resistant Organisms: None Reported Past Surgical History: Orthopedic Surgery Additional Past Surgical History / Comment(s): right shoulder Past Anesthesia/Blood Transfusion Reactions: No Reported Reaction Past Psychological History: No Psychological Hx Reported Smoking Status: Never smoker Past Alcohol Use History: Occasional Past Drug Use History: None Reported - Past Family History Mother Additional Family Medical History / Comment(s): breast cancer, sister breast cancer General Exam - General Exam Comments Initial Comments: GENERAL: Well-appearing, well-nourished and in no acute distress. HEAD: Atraumatic, normocephalic. EYES: Pupils equal round and reactive to light, extraocular movements intact, sclera anicteric, conjunctiva are normal. ENT: TMs normal, nares patent, oropharynx clear without exudates. Moist mucous membranes. NECK: Normal range of motion, supple without lymphadenopathy or JVD. LUNGS: Breath sounds clear to auscultation bilaterally and equal. No wheezes rales or rhonchi. HEART: Regular rate and rhythm without murmurs, rubs or gallops. ABDOMEN: Soft, nontender, normoactive bowel sounds. No guarding, no rebound. No masses appreciated. Mild right flank pain. : Deferred EXTREMITIES: Normal range of motion, no pitting or edema. No clubbing or cyanosis. NEUROLOGICAL: Normal speech, normal gait. PSYCH: Normal mood, normal affect. SKIN: Warm, Dry, normal turgor, no rashes or lesions noted. Limitations: no limitations Course Vital Signs 07/29/19 18:36 Temperature 97.8 F Pulse Rate 88 Respiratory 20 Rate Blood Pressure 124/77 O2 Sat by Pulse 100 Oximetry Medical Decision Making - Medical Decision Making Patient is a 29-year-old female presenting with right flank pain 3 days. Vital signs are stable. Patient is currently 24 weeks with no complications thus far. No abdominal pain, no vaginal bleeding. Lab work shows leukocytosis at 12.3. Urine does show positive for bacteria. Urine culture is pending. heart tones are normal. I discussed with patient this is most likely a UTI. There is no blood in the urine to indicate kidney stone at this time. Kidney function is normal. Patient will be given dose of Rocephin in the ER and will be continued on Keflex outpatient. Patient is agreement this plan of care. Return parameters were discussed with the patient and she verbalized understanding. - Lab Data Result diagrams: 07/29/19 19:07/29/19 19: Lab Results 07/29/19 07/29/19 07/29/19 Range/Units 19: 19: 19: WBC 12.3 H (3.8-10.6) k/uL RBC 4.23 (3.80-5.40) m/uL Hgb 12.9 (11.4-16.0) gm/dL Hct 39.3 (34.0-46.0) % MCV 92.9 (80.0-100.0) fL MCH 30.6 (25.0-35.0) pg MCHC 32.9 (31.0-37.0) g/dL RDW 13.4 (11.5-15.5) % Plt Count 247 (150-450) k/uL Neutrophils % 79 % Lymphocytes % 12 % Monocytes % 5 % Eosinophils % 1 % Basophils % 0 % Neutrophils # 9.7 H (1.3-7.7) k/uL Lymphocytes # 1.5 (1.0-4.8) k/uL Monocytes # 0.6 (0-1.0) k/uL Eosinophils # 0.2 (0-0.7) k/uL Basophils # 0.0 (0-0.2) k/uL Sodium 135 L (137-145) mmol/L Potassium 3.9 (3.5-5.1) mmol/L Chloride 105 (98-107) mmol/L Carbon Dioxide 23 (22-30) mmol/L Anion Gap 7 mmol/L BUN 7 (7-17) mg/dL Creatinine 0.57 (0.52-1.04) mg/dL Est GFR (CKD-EPI)AfAm >90 (>60 ml/min/1.73 sqM) Est GFR (CKD-EPI)NonAf >90 (>60 ml/min/1.73 sqM) Glucose 87 (74-99) mg/dL Calcium 8.6 (8.4-10.2) mg/dL Total Bilirubin 0.2 (0.2-1.3) mg/dL AST 23 (14-36) U/L ALT 15 (4-34) U/L Alkaline Phosphatase 60 (38-126) U/L Total Protein 6.5 (6.3-8.2) g/dL Albumin 3.5 (3.5-5.0) g/dL Urine Color Light Yellow Urine Appearance Cloudy H (Clear) Urine pH 6.5 (5.0-8.0) Ur Specific [place] 1.007 (1.001-1.035) Urine Protein Negative (Negative) Urine Glucose (UA) Negative (Negative) Urine Ketones Negative (Negative) Urine Blood Negative (Negative) Urine Nitrite Negative (Negative) Urine Bilirubin Negative (Negative) Urine Urobilinogen <2.0 (<2.0) mg/dL Ur Leukocyte Esterase Moderate H (Negative) Urine RBC 3 (0-5) /hpf Urine WBC 5 (0-5) /hpf Ur Squamous Epith Cells 23 H (0-4) /hpf Urine Bacteria Occasional H (None) /hpf Urine Mucus Rare H (None) /hpf Disposition Clinical Impression: Right flank pain, UTI (urinary tract infection) Disposition: HOME SELF-CARE Condition: Stable Instructions (If sedation given, give patient instructions): Urinary Tract Infection in (ED) Additional Instructions: Please return to the Emergency Department if symptoms worsen or any other concerns. Take antibiotic as prescribed. May take Tylenol for discomfort. Make sure to increase fluid intake. Follow-up with TECHNICAL PUBLICATIONS MANAGER as discussed. Prescriptions: Cephalexin [Keflex] 500 mg PO BID 7 Days #14 cap Is patient prescribed a controlled substance at d/c from ED?: No Referrals: Bandar Calderón MD [Primary Care Provider] - 1-2 days
== END 2019-07-29 20:17 | disposition home or self-care (01) ==
LOC: EC 18:30
DX: O23.42 Unspecified infection of urinary tract in pregnancy, second trimester (principal); Z3A.24 24 weeks gestation of pregnancy
CPT/HCPCS: 36415; 80053; 85025; 81001; 99284; 96374; J0696

== ENCOUNTER → 2019-08-13 | Outpatient (CLI) | payer MEDICAID | END | disposition home or self-care (01) | LOC: LABWHC1 10:58 | PROVIDERS: ATTEND Obstetrics & Gynecology | DX: Z53.9 Procedure and treatment not carried out, unspecified reason (principal) ==

== ENCOUNTER → 2019-08-16 | Outpatient (CLI) | payer MEDICAID ==
[2019-08-16 09:32] LABS: HCT 33.8 % (34.0-46.0); HGB 11.3 gm/dL (11.4-16.0); MCH 30.9 pg (25.0-35.0); MCHC 33.4 g/dL (31.0-37.0); MCV 92.6 fL (80.0-100.0); Mean Platelet Volume 7.7; Platelet Count 250 k/uL (150-450); RBC 3.65 m/uL (3.80-5.40); RDW 13.2 % (11.5-15.5); WBC 11.8 k/uL (3.8-10.6)
== END | disposition home or self-care (01) ==
LOC: LABWHC1 08:18
PROVIDERS: ATTEND Obstetrics & Gynecology
DX: Z34.82 Encounter for supervision of other normal pregnancy, second trimester (principal)
CPT/HCPCS: 36415; 82950; 85027

== ENCOUNTER → 2019-09-21 | Outpatient (CLI) | payer MEDICAID ==
--- NOTE | 2019-09-21 11:54 | US ---
EXAMINATION TYPE: US OB anatomy transabd DATE OF EXAM: 09/21/2019 COMPARISON: NONE HISTORY: O36.63X0 large for dates, third trimester Follow up to previous. TECHNIQUE: Transabdominal (TA) EXAM MEASUREMENTS: GESTATIONAL AGE / DATING Physician Established: (33 weeks/0 days) EDC: 11/09/2019 Dates by LMP: (33 weeks/0 days) EDC: 11/09/2019 Dates by First Scan: (11 weeks/4 days) EDC: 11/07/2019 Dates by Current Scan for: (33 weeks/ days) 6 EDC: 11/03/2019 SURVEY IUP: Single PLACENTA: posterior PREVIA: no JACK: 14.8 cm Normal CERVICAL LENGTH (transabdominal: norm > 3.0cm): 4.0 cm BIOMETRY PRESENTATION: Vertex LIE: Longitudinal BPD: 8.64 cm 34 weeks / 6 days HC: 30.94 cm 34 weeks / 4 days AC: 29.15 cm 33 weeks / 1 days FL: 6.66 cm 34 weeks / 2 days ESTIMATED WEIGHT IN GRAMS: 2274 grams ESTIMATED WEIGHT IN LBS/OZ: 5 lbs. 0 oz. WEIGHT PERCENTAGE BASED ON ESTABLISHED DATE: 65.8 % HC/AC: 1.06 cm Normal FL/AC: 22.84 cm Normal HEART RATE: 131 bpm RHYTHM: Normal ANATOMY SEEN (within normal limits): Four Chamber Heart Stomach Nose / Lips Kidneys (bilateral) Bladder Renal pelves visualized measuring 0.5cm bilaterally. IMPRESSION: There is pelviectasis within the kidneys, follow-up suggested. Limited survey. Single viable in trauterine corresponding to ultrasound age 33 weeks 6 days with estimated date of delivery 11/03/2019.
== END | disposition home or self-care (01) ==
LOC: RADUSWWP 10:11
PROVIDERS: ATTEND Obstetrics & Gynecology
DX: Z3A.33 33 weeks gestation of pregnancy (principal); N13.30 Unspecified hydronephrosis
CPT/HCPCS: 76811

== ENCOUNTER → 2019-10-08 | Outpatient (CLI) | payer MEDICAID ==
--- NOTE | 2019-10-08 10:17 | US ---
EXAMINATION TYPE: US OB >= 14 wk fetus DATE OF EXAM: 10/08/2019 COMPARISON: 09/21/2019 and 06/17/2019 CLINICAL HISTORY: 29-year-old female N28.89 Other specified disorders of kidney and ur Dilated re nal pelvic on previous scan TECHNIQUE: Transabdominal (TA) FINDINGS: GESTATIONAL AGE / DATING Physician Established: (35 weeks/3 days) EDC: 11/09/2019 Dates by LMP: (35 weeks/3 days) EDC: 11/09/2019 Dates by First Scan: (35 weeks/5 days) EDC: 11/07/2019 Dates by Current Scan: (35 weeks/2 days) EDC: 11/10/2019 (7 days less growth than expected from 09/21/2019). SURVEY IUP: Single PLACENTA: Posterior PREVIA: No Previa JACK: 13.6 cm Normal CERVICAL LENGTH (transabdominal: norm > 3.0cm): 3.4 cm BIOMETRY PRESENTATION: Vertex BPD: 8.9 cm 36 weeks / 0 days HC: 32.3 cm 36 weeks / 3 days AC: 30.6 cm 34 weeks / 4 days FL: 6.9 cm 35 weeks / 2 days ESTIMATED WEIGHT IN GRAMS: 2595 grams ESTIMATED WEIGHT IN LBS/OZ: 5 lbs. 12 oz. WEIGHT PERCENTAGE BASED ON ESTABLISHED DATES: 39% (versus 66th percentile on 09/21/2019) HC/AC: 1.05 Normal FL/AC: 22 Normal HEART RATE: 167 bpm RHYTHM: Normal Materials Manager notes: Single, viable IUP, left renal pelvis= 0.6 cm, right renal pelvis= 0.5 cm These measures 5 mm each on 09/21/2019 and 3 mm each on 06/17/2019. IMPRESSION: 1. Single live intrauterine with established gestational age of 35 weeks 3 days by LMP. Cur rent ultrasound biometry is concordant (35 weeks 2 days) but demonstrates 7 days less growth than exp ected from 09/21/2019 (EFW% dropping from the 66 percentile to the 39th percentile). Continued follow- up as clinically indicated. 2. Borderline bilateral pelviectasis, 6 mm on the left and 5 mm on the right (versus 5 mm on each nichole e on 09/21/2019 and 3 mm on each side on 06/17/2019). Again, continued follow-up as clinically indicate d.
== END | disposition home or self-care (01) ==
LOC: RADUSWWP 08:56
PROVIDERS: ATTEND Obstetrics & Gynecology
DX: O26.833 Pregnancy related renal disease, third trimester (principal); Z3A.35 35 weeks gestation of pregnancy; N28.89 Other specified disorders of kidney and ureter
CPT/HCPCS: 76805

== ENCOUNTER 2019-11-07 00:38 | Inpatient (IN) | payer MEDICAID ==
[2019-11-07] MEDS ORDERED: CARBOPROST TROMETHAMINE 250 MCG/ML 1 ML AMP IM PRN (01:53)
[2019-11-07] MEDS ORDERED: TERBUTALINE 1 MG/ML VIAL SQ PRN (01:53)
[2019-11-07] MEDS ORDERED: LIDOCAINE 0.5% (PF) 5 MG/ML (50 ML SDV) SQ PRN (01:53)
[2019-11-07] MEDS ORDERED: OXYTOCIN 10 UNIT/ML 1 ML VIAL IM PRN (01:53)
[2019-11-07] MEDS ORDERED: METHYLERGONOVINE 0.2 MG/ML 1 ML AMP IM PRN (01:53)
[2019-11-07] MEDS ORDERED: LACTATED RINGERS 1,000 ML IV SCH (02:00)
[2019-11-07 03:11] LABS: Basophils % (A) 0 %; Eosinophils # (A) 0.1 k/uL (0-0.7); Eosinophils % (A) 0 %; HCT 38.1 % (34.0-46.0); HGB 12.7 gm/dL (11.4-16.0); Lymphocytes # (A) 1.5 k/uL (1.0-4.8); Lymphocytes % (A) 12 %; MCH 31.4 pg (25.0-35.0); MCHC 33.3 g/dL (31.0-37.0); MCV 94.6 fL (80.0-100.0); Mean Platelet Volume 8.7; Monocytes # (A) 0.5 k/uL (0-1.0); Monocytes % (A) 4 %; Neutrophils # (A) 10.3 k/uL (1.3-7.7); Neutrophils % (A) 82 %; Platelet Count 187 k/uL (150-450); RBC 4.03 m/uL (3.80-5.40); RDW 13.1 % (11.5-15.5); WBC 12.5 k/uL (3.8-10.6)
[2019-11-07] MEDS ORDERED: ROPIVACAINE 5MG/ML 20ML VIAL ONE (03:21)
[2019-11-07] MEDS ORDERED: SODIUM CHLORIDE 0.9% 100 ML BAG ONE (03:21)
[2019-11-07] MEDS ORDERED: fentaNYL (PF) 50 MCG/ML 5 ML AMP ONE (03:21)
--- NOTE | 2019-11-07 06:08 | P.HPOB ---
History of Present Illness H&P Date: 11/07/19 Chief Complaint: Intrauterine term: Active labor Patient is a 29-year-old at 38 weeks gestation who arrives in active labor soheila every 2-3 minutes making cervical change. Her initial exam showed her to be elevated to 3 cm and an hour later she was dilated to 4-1/2 cm the Precis course was, complicated by newly dilated renal pelvis and the fetus for which an ultrasound will need to be repeated were discussed with the air carrier inspector and nursery personnel. Otherwise her Precis course was very good and she is feeling well at this time. She plans to use epidural for analgesia. Pertinent labs O+ blood type Rh and it was negative, rubella immune, hepatitis B surface antigen/RPR/HIV were all negative as well as groupie strep. Artificial rupture members was performed and clear fluid is noted any category 1 tracing is noted. Past Medical History Past Medical History: No Reported History History of Any Multi-Drug Resistant Organisms: None Reported Past Surgical History: Orthopedic Surgery Additional Past Surgical History / Comment(s): right shoulder Past Anesthesia/Blood Transfusion Reactions: No Reported Reaction Past Psychological History: No Psychological Hx Reported Smoking Status: Never smoker Past Alcohol Use History: Occasional Past Drug Use History: None Reported - Past Family History Mother Family Medical History: Cancer Additional Family Medical History / Comment(s): breast cancer, sister breast cancer Medications and Allergies Home Medications Medication Instructions Recorded Confirmed Type Snf-Bdgj-Qfubc Acid 1 cap PO DAILY 07/29/19 11/07/19 History [-U Capsule (formulary)] Allergies Allergy/AdvReac Type Severity Reaction Status Date / Time No Known Allergies Allergy Verified 11/07/19 00:39 Exam Osteopathic Statement: *. No significant issues noted on an osteopathic structural exam other than those noted in the History and Physical/Consult. Vital Signs Temp Pulse Resp BP Pulse Ox 11/07/19 01:53 96.9 F L 80 16 102/67 100 11/07/19 00:40 98.2 F 84 16 121/92 100 Intake and Output 11/06/19 11/06/19 11/07/19 14:59 22:59 06:59 Other: Weight 75.75 kg - OBG Physical Exam Breast: both: normal (no masses) Abdomen: bowel sounds normal, no diffuse tenderness, no bruit present, no guarding noted, no hepatomegaly, no splenomegaly, no mass Vulva: both: normal Vagina: normal moisture, no discharge Cervix: no lesion, no discharge Uterus: normal size, normal contour Adnexa: both: normal Anus/Rectum: normal perianal skin, no rectal mass, no hemorrhoids, heme negative Results Result Diagrams: 11/07/19 02:20 Abnormal Lab Results - Last 24 Hours (Table) 11/07/19 Range/Units 02:20 WBC 12.5 H (3.8-10.6) k/uL Neutrophils # 10.3 H (1.3-7.7) k/uL
--- NOTE | 2019-11-07 06:08 | P.PROBDLV ---
Vaginal Delivery Note - . Vaginal Delivery Note: Patient progressed complete and pushing with spontaneous vaginal delivery of a viable male over an intact perineum. Following delivery of the head anterior posterior shoulders were easily delivered with gentle downward upper traction. A nuchal cord 1 was noted and was released initially attempt to deliver the baby through however it did not go all the way over the body therefore it was reduced. Once baby was fully delivered mouth nares were bulb suctioned and baby was placed on's abdomen where the umbilical cord was clamped and cut in usual fashion. This was after 45 seconds of pulsation. Placenta was then delivered intact and Pitocin was added to the IV. scores were 8 and 9 at one and 5 minutes respectively and the weight is pending. Both mother and baby however appear stable at this time.
[2019-11-07] MEDS ORDERED: ACETAMINOPHEN TAB 325 MG TAB PO PRN (06:10)
[2019-11-07] MEDS ORDERED: BENZOCAINE/MENTHOL SPRAY 1 GM/SPRAY AEROSOL TOPICAL PRN (06:10)
[2019-11-07] MEDS ORDERED: LANOLIN CREAM 5 GM TUBE TOPICAL PRN (06:10)
[2019-11-07] MEDS ORDERED: SIMETHICONE 80 MG CHEWABLE PO PRN (06:10)
[2019-11-07] MEDS ORDERED: diphenhydrAMINE 50 MG/ML 1 ML VIAL IVP PRN ×2 (06:10)
[2019-11-07] MEDS ORDERED: diphenhydrAMINE 25 MG CAP PO PRN (06:10)
[2019-11-07] MEDS ORDERED: HYDROCORTISONE 2.5% RECTAL CREAM 30 GM TUBE RECTAL PRN (06:10)
[2019-11-07] MEDS ORDERED: diphenhydrAMINE 50 MG CAP PO PRN (06:10)
[2019-11-07] MEDS ORDERED: ZOLPIDEM 5 MG TAB PO PRN (06:10)
[2019-11-07] MEDS ORDERED: OXYTOCIN 20 UNITS/1000 ML NS 1,000 ML IV SCH (06:15)
[2019-11-07] MEDS: SENNOSIDES-DOCUSATE SODIUM 1 EACH TAB PO SCH ×2 (14:58→20:36)
[2019-11-07] MEDS: IBUPROFEN 600 MG TAB PO PRN ×2 (16:23→23:09)
[2019-11-07 22:39] VITALS: TEMP 98.2
[2019-11-08 06:02] LABS: Basophils % (A) 0 %; Eosinophils # (A) 0.1 k/uL (0-0.7); Eosinophils % (A) 1 %; HCT 35.6 % (34.0-46.0); Lymphocytes % (A) 17 %; MCH 31.4 pg (25.0-35.0); MCHC 33.7 g/dL (31.0-37.0); MCV 93.2 fL (80.0-100.0); Mean Platelet Volume 9.1; Monocytes # (A) 0.7 k/uL (0-1.0); Monocytes % (A) 6 %; Neutrophils # (A) 9.1 k/uL (1.3-7.7); Neutrophils % (A) 75 %; Platelet Count 158 k/uL (150-450); RBC 3.82 m/uL (3.80-5.40); RDW 13.2 % (11.5-15.5); WBC 12.2 k/uL (3.8-10.6)
[2019-11-08] MEDS: IBUPROFEN 600 MG TAB PO PRN (07:39)
[2019-11-08] MEDS: SENNOSIDES-DOCUSATE SODIUM 1 EACH TAB PO SCH (07:39)
--- NOTE | 2019-11-08 09:58 | P.DS ---
Providers Date of admission: 11/07/19 01:41 Expected date of discharge: 11/08/19 Attending physician: Andres Root Primary care physician: Stated None Hospital Course: Patient is doing very well post day 1. She is involuting, voiding and tolerating her diet. She voices no complaints. Vital signs are stable and afebrile. Heart regular, lungs clear, extremities without pain. Abdomen is soft uterus is firm and lochia is reported be light. Discharge instructions thoroughly reviewed all questions answered. Stable for discharge at this time. Assessment day 1. Plan discharged home follow up me in 6 weeks. Patient Condition at Discharge: Good Plan - Discharge Summary New Discharge Prescriptions: No Action Zki-Bdci-Wcrkf Acid [-U Capsule (formulary)] 1 cap PO DAILY Discharge Medication List Sne-Hlwz-Grlkp Acid [-U Capsule (formulary)] 1 cap PO DAILY 07/29/19 [History] Follow up Appointment(s)/Referral(s): Andres Root DO [Doctor of Osteopathic Medicine] - 6 Weeks Activity/Diet/Wound Care/Special Instructions: No heavy lifting, limit stairs and driving, and pelvic rest. If any high temperatures, heavy bleeding, or severe pain call my office Discharge Disposition: HOME SELF-CARE
[2019-11-08 17:15] VITALS: BP 107/66; PULSE 87; RESP 16
== END 2019-11-08 17:05 | disposition home or self-care (01) | DRG 807 ==
LOC: FBPOP 00:38 → 4FBP 01:41
PROVIDERS: ADMIT Obstetrics & Gynecology; ATTEND Obstetrics & Gynecology
PROC: 00HU33Z Insertion of Infusion Device into Spinal Canal, Percutaneous Approach (ICD-10-PCS; principal; 2019-11-07)
PROC: 3E0R3BZ Introduction of Anesthetic Agent into Spinal Canal, Percutaneous Approach (ICD-10-PCS; principal; 2019-11-07)
PROC: 10E0XZZ Delivery of Products of Conception, External Approach (ICD-10-PCS; principal; 2019-11-07)
DX: O69.81X0 Labor and delivery complicated by cord around neck, without compression, not applicable or unspecified (principal); Z37.0 Single live birth; Z3A.38 38 weeks gestation of pregnancy; Z80.3 Family history of malignant neoplasm of breast
CPT/HCPCS: 59025; 85025; 86850; 86900; 86901; 99213

== ENCOUNTER → 2022-02-05 | Outpatient (CLI) | payer MEDICAID ==
[2022-02-05 10:22] LABS: HCT 39.3 % (37.2-46.3); HGB 12.8 g/dL (12.0-15.0); MCH 30.3 pg (27.0-32.0); MCHC 32.6 g/dL (32.0-37.0); MCV 92.9 fL (80.0-97.0); Mean Platelet Volume 10.2 fL (9.5-12.2); NRBC Per 100 WBC 0 /100 WBCS (0.0-0.0); Platelet Count 250 X 10*3/uL (140-440); RBC 4.23 X 10*6/uL (4.10-5.20); RDW 12.4 % (11.5-14.5); WBC 9.11 X 10*3/uL (4.50-10.00)
[2022-02-05 10:35] LABS: African American GFR (CKD) 138.8 (60.0-200.0); Non-African American GFR(CKD) 119.8 (60.0-200.0)
[2022-02-05 10:49] LABS: Hepatitis B Surface Antigen Nonreactive (Nonreactive); Hepatitis C IgG Antibody Nonreactive (Nonreactive)
[2022-02-05 14:56] LABS: HIV 2 AB Non-Reactive (Non-Reactive); HIV AB P24 Non-Reactive (Non-Reactive); HIV P24 AG Non-Reactive (Non-Reactive)
[2022-02-06 04:28] LABS: Toxoplasma Antibody (IgG) <3.0 IU/mL (<7.2); Toxoplasma Antibody (IgM) <3.0 AU/mL (<8.0)
== END | disposition home or self-care (01) ==
LOC: LABWHC1 08:03
PROVIDERS: ATTEND Obstetrics & Gynecology
DX: Z34.81 Encounter for supervision of other normal pregnancy, first trimester (principal)
CPT/HCPCS: 36415; 82565; 82947; 85027; 86762; 86777; 86778; 86780; 86803; 86850; 86900; 86901; 87340; 87390

== ENCOUNTER → 2022-04-03 | Outpatient (CLI) | payer MEDICAID ==
--- NOTE | 2022-04-03 12:43 | US ---
EXAMINATION TYPE: US OB anatomy transabd DATE OF EXAM: 04/03/2022 COMPARISON: 02/06/2022 HISTORY: O36.62X0 Maternal care for excessive growth, TECHNIQUE: Transabdominal (TA) EXAM MEASUREMENTS: GESTATIONAL AGE / DATING Physician Established: (19weeks/2 days) EDC: 08-26-22 Dates by LMP: (19 weeks/2 days) EDC: 08-26-22 Dates by First Scan: (19 weeks/3 days) EDC: 08-24-22 Dates by Current Scan for: (18 weeks/2 days) EDC: 09-02-22 SURVEY IUP: Single PLACENTA: Posterior PREVIA: No previa JACK: 12.0 cm CERVICAL LENGTH (transabdominal: norm > 3.0cm): 3.8 cm BIOMETRY PRESENTATION: Vertex BPD: 4.1 cm 18 weeks / 3 days HC: 15.41 cm 18 weeks / 3 days AC: 11.70 cm 17 weeks / 4 days FL: 2.82 cm 18 weeks / 5 days ESTIMATED WEIGHT IN GRAMS: 222 grams ESTIMATED WEIGHT IN LBS/OZ: 0 lbs. 8 oz. WEIGHT PERCENTAGE BASED ON ESTABLISHED DATE: % HC/AC: 1.32 Abnormal FL/AC: 24% HEART RATE: 150 bpm RHYTHM: Normal ANATOMY SEEN (within normal limits): * Lateral Vent (< 1 cm) 0.6 cm * Cisterna Magna (< 1.1 cm) 0.4 cm * Nuchal Fold (< 0.6 cm) 0.3 cm * Cerebellum (varies with age) 1.6 cm Choroid Plexus (bilateral) Midline Falx Cavus Septi Pellucidi Four Chamber Heart Outflow tracts: LVOT/RVOT Stomach Situs Nose / Lips Diaphragm Kidneys (bilateral) Bladder Cord Insert Three Vessel Cord Arms (bilateral) Legs (bilateral) ANATOMY NOT SEEN: Longitudinal Spine Transverse Spine Patient coming back for an OB callback for spine pictures. IMPRESSION: 1. Single intrauterine gestation with borderline abnormal HC/AC likely secondary to AC measuring sli ghtly below other measurements. 2. Patient to return for additional imaging of the spine.
== END | disposition home or self-care (01) ==
LOC: RADUSWWP 10:50
PROVIDERS: ATTEND Obstetrics & Gynecology
DX: O36.62X0 Maternal care for excessive fetal growth, second trimester, not applicable or unspecified (principal); Z3A.19 19 weeks gestation of pregnancy
CPT/HCPCS: 76811

== ENCOUNTER → 2022-05-02 | Outpatient (CLI) | payer MEDICAID ==
--- NOTE | 2022-05-02 11:48 | US ---
EXAMINATION TYPE: US OB Call Back DATE OF EXAM: 05/02/2022 COMPARISON: 04/03/2022, 02/06/2022 CLINICAL HISTORY: 32-year-old female Callback for spine images, measurements TECHNIQUE: Multiple transabdominal sonographic images of the pelvis are obtained. FINDINGS: GESTATIONAL AGE / DATING Dates by Initial Survey Scan: (19 weeks/3 days) EDC: 08/24/2022 Establish gestational age: 23 weeks 3 days EDC: 08/26/2022 GA on today's exam: 23w1d ROBERT 08/28/2022 (5 days more growth than expected compared to 04/03/2022) HEART RATE: 143 bpm RHYTHM: Normal ANATOMY SEEN (second anatomic survey look): Longitudinal Spine: wnl Transverse Spine: wnl Measurements: BPD: 5.7cm (23w4d) HC: 21.3cm (23w3d) AC: 18.4cm (23w2d) FL: 4.0cm (23w0d) EFW percent 41%. (Versus 4th percentile on 04/03/2022) Estimated Weight: 565g (1lb 4oz). Ratio: HC/AC 1.16 (Normal) (versus abnormal increased 1.32 on 04/03/2022) FL/BPD 70% (Normal) FL/AC 22% (Normal) IMPRESSION: 1. Normal appearance to the spine. 2. Given the previous increased HC/AC as well as the EFW measuring at the 4th percentile on 04/03/2022 , biometry was reassessed. Current measurements place the child at the 41st percentile for weig ht. 23 weeks 1 day by current measurements (versus 23 weeks 3 days established gestational age). Ther e may have been under estimation to the abdominal circumference on the previous anatomy scan. Additio nal follow-up as clinically indicated.
== END | disposition home or self-care (01) ==
LOC: RADUSWWP 07:29
PROVIDERS: ATTEND Obstetrics & Gynecology
DX: O36.62X0 Maternal care for excessive fetal growth, second trimester, not applicable or unspecified (principal); Z3A.23 23 weeks gestation of pregnancy

== ENCOUNTER → 2022-05-17 | Outpatient (CLI) | payer MEDICAID ==
[2022-05-17 15:19] LABS: HCT 36.6 % (37.2-46.3); HGB 11.6 g/dL (12.0-15.0); MCH 30.4 pg (27.0-32.0); MCHC 31.7 g/dL (32.0-37.0); MCV 96.1 fL (80.0-97.0); Mean Platelet Volume 10.5 fL (9.5-12.2); NRBC Per 100 WBC 0 /100 WBCS (0.0-0.0); Platelet Count 232 X 10*3/uL (140-440); RBC 3.81 X 10*6/uL (4.10-5.20); RDW 13.2 % (11.5-14.5); WBC 11.55 X 10*3/uL (4.50-10.00)
== END | disposition home or self-care (01) ==
LOC: LABWHC1 08:27
PROVIDERS: ATTEND Obstetrics & Gynecology
DX: Z34.82 Encounter for supervision of other normal pregnancy, second trimester (principal); Z3A.00 Weeks of gestation of pregnancy not specified
CPT/HCPCS: 36415; 82950; 85027

== ENCOUNTER 2022-07-23 15:09 | Outpatient (CLI) | payer MEDICAID ==
[2022-07-23 16:29] VITALS: BP 98/66; PULSE 71; RESP 16; TEMP 97.3
--- NOTE | 2022-07-23 17:38 | P.MSEPDOC ---
Presenting Problems - Arrival Data Date of Arrival on Unit: 07/23/22 Time of Arrival on Unit: 15:09 Mode of Transport: Ambulatory - Complaint OB-Reason for Admission/Chief Complaint: NST Comment: Pt sent over from Dr. Garcia's office with order for NST. IUGR Z36.4 Medical History - Information : 3 Para: 2 Term: 2 : 0 Abortions: Spontaneous or Elective: 0 Number of Living Children: 2 - Gestational Age Gestational Age by ROBERT (wks/days): 34 Weeks and 6 Days Review of Systems - Review of Systems Constitutional: No problems Breast: No problems ENT: No problems Cardiovascular: No problems Respiratory: No problems Gastrointestinal: No problems Genitourinary: No problems Musculoskeletal: No problems Neurological: No problems Skin: No problems Vital Signs - Temperature Temperature: 97.3 F Temperature Source: Temporal Artery Scan - Pulse Pulse Oximetery Pulse Rate: 71 Pulse Assessment Method: Pulse Oximetry - Respirations Respiratory Rate: 16 Oxygen Delivery Method: Room Air O2 Sat by Pulse Oximetry: 100 - Blood Pressure Right Arm Blood Pressure: 98/66 Blood Pressure Mean: 76 Blood Pressure Source: Automatic Cuff Medical Screen Scoring - Cervical Exam Membranes: Intact - Assessment - Baby A Baseline FHR: 135 Heart Rate - NICHD Category: Category I (Normal) NST: Reactive Physician Notification - Notification Comment Comment: Per order from Dr. Garcia, if NST reactive, RN to discharge pt home Maternal Triage Index - Maternal Triage Index Presenting for scheduled procedure w/no complaint: No - Stat/Priority 1 Stat Priority 1: No - Urgent/Priority 2 Urgent Priority 2: No - Prompt/Priority 3 Prompt Priority 3: No - Non-Urgent/Priority 4 Non-Urgent Priority 4: No - Scheduled/Requesting Priority 5 Scheduled/Requesting Priority 5: Yes Criteria Met for Priority 5: Pt sent over from Dr. Garcia's office with order for NST. IUGR Z36.4 Disposition - Disposition OB Disposition: Discharge to home, Written follow up instructions reviewed Discharge Date: 07/23/22 Discharge Time: 16:00 I agree with the RN Medical Screening Exam: Yes Case reviewed; plan agreed upon as documented in EMR&OBIX.: Yes Diagnosis: RELATED CONDITIONS, UNSPECIFIED, THIRD TRIMESTER (Patient results to labor and delivery from my office for a nonstress test for possible IUGR. Patient's nonstress test is category 1 without decelerations or areas of concerns. This time there is no evidence of maternal or compromise. Patient was instructed to return on Friday for repeat nonstress test and has a future appointment with maternal medicine.)
== END 2022-07-23 16:00 | disposition home or self-care (01) ==
LOC: FBPOP 15:09
PROVIDERS: ATTEND Obstetrics & Gynecology
DX: O26.893 Other specified pregnancy related conditions, third trimester (principal); Z3A.34 34 weeks gestation of pregnancy
CPT/HCPCS: 59025

== ENCOUNTER → 2022-07-23 | Outpatient (CLI) | payer MEDICAID ==
--- NOTE | 2022-07-23 08:53 | US ---
EXAMINATION TYPE: US OB >= 14 wk fetus DATE OF EXAM: 07/23/2022 COMPARISON: Prior ultrasounds May 02, 2022 and April 03, 2022 and February 06, 2022 CLINICAL HISTORY: O363.63X0 LARGE FOR DATESLarge for dates. TECHNIQUE: Transabdominal (TA) GESTATIONAL AGE / DATING Physician Established: (34 weeks/6 days) EDC: 08/28/2022 Dates by LMP: (34 weeks/6 days) EDC: 08/28/2022 Dates by First Scan: (19 weeks/2 days) EDC: 08/26/2022 Dates by Current Scan: (33 weeks/0 days) EDC: 09/10/2022 SURVEY IUP: Single PLACENTA: Fundal PREVIA: No Previa JACK: 12.7 cm Normal CERVICAL LENGTH (transabdominal: norm > 3.0cm): 3.2 cm BIOMETRY PRESENTATION: Vertex LIE: Longitudinal BPD: 8.39 cm 33 weeks / 6 days HC: 29.53 cm 32 weeks /5 days AC: 27.62 cm 31 weeks / 5 days FL: 6.53 cm 33 weeks / 5 days ESTIMATED WEIGHT IN GRAMS: 2000 grams ESTIMATED WEIGHT IN LBS/OZ: 4 lbs. 7 oz. WEIGHT PERCENTAGE BASED ON ESTABLISHED DATES: 4% HC/AC: 1.07 Abnormal FL/AC: 24% Normal HEART RATE: 139 bpm RHYTHM: Normal Single live intrauterine gestation is redemonstrated. No cervical thinning. No placenta previa. Amnio tic fluid index is estimated within normal limits. Normal cephalad presentation. biometry measu rements are congruent and within normal limits with interval satisfactory growth noted from prior hollie dies. IMPRESSION: As above.
== END | disposition home or self-care (01) ==
LOC: RADUSWWP 07:33
PROVIDERS: ATTEND Obstetrics & Gynecology
DX: O36.63X0 Maternal care for excessive fetal growth, third trimester, not applicable or unspecified (principal); Z3A.33 33 weeks gestation of pregnancy
CPT/HCPCS: 76805

== ENCOUNTER 2022-08-24 12:30 | Inpatient (IN) | payer MEDICAID ==
[2022-08-24] MEDS ORDERED: CARBOPROST TROMETHAMINE 250 MCG/ML 1 ML AMP IM PRN (13:38)
[2022-08-24] MEDS ORDERED: LIDOCAINE 0.5% (PF) 5 MG/ML (50 ML SDV) SQ PRN (13:38)
[2022-08-24] MEDS ORDERED: METHYLERGONOVINE 0.2 MG/ML 1 ML AMP IM PRN (13:38)
[2022-08-24] MEDS ORDERED: OXYTOCIN 10 UNIT/ML 1 ML VIAL IM PRN (13:38)
[2022-08-24] MEDS ORDERED: TERBUTALINE 1 MG/ML VIAL SQ PRN (13:38)
[2022-08-24] MEDS ORDERED: TRANEXAMIC ACID IN NACL,ISO-OS 1,000 MG in EMPTY BAG 1 BAG IV PRN (13:38)
[2022-08-24] MEDS ORDERED: miSOPROStoL 200 MCG TAB PO PRN (13:38)
[2022-08-24] MEDS ORDERED: OXYTOCIN 30 UNITS/500 ML NS 30 UNIT in SALINE 1 500ML.BAG IV SCH ×2 (13:45→17:30)
[2022-08-24] MEDS ORDERED: LACTATED RINGERS 1,000 ML IV SCH (13:45)
--- NOTE | 2022-08-24 14:20 | P.HPOB ---
History of Present Illness H&P Date: 08/24/22 Chief Complaint: Contractions and spotting This patient is a pleasant 32-year-old 3 para 2 female estimated date of confinement 08/28/2022 estimated gestational age 39-4/7 weeks who presents to labor and delivery with complaints of leaking of fluid yesterday and some spotting. Patient's found not to have ruptured membranes however cervix is 4 cm and in the office 4 days ago she was 2 cm. care for the most part has been uncomplicated however she did have an ultrasound done at 35 weeks here [facility] that was suggestive of intrauterine growth restriction however I had her see maternal- medicine and the confirmed that this baby was appropriate for gestational age. No evidence of IUGR. Patient's otherwise has been uncomplicated. Review of Systems Genitourinary: Reports as per HPI, Reports Menstruation: Reports amenorrhea Past Medical History Past Medical History: No Reported History History of Any Multi-Drug Resistant Organisms: None Reported Past Surgical History: Orthopedic Surgery Additional Past Surgical History / Comment(s): right shoulder Past Anesthesia/Blood Transfusion Reactions: No Reported Reaction Past Psychological History: No Psychological Hx Reported Smoking Status: Never smoker Past Alcohol Use History: None Reported Past Drug Use History: None Reported - Past Family History Mother Family Medical History: Cancer Additional Family Medical History / Comment(s): breast cancer, sister breast cancer Medications and Allergies Home Medications Medication Instructions Recorded Confirmed Type Xqv-Vmmr-Rhxvn Acid 1 cap PO DAILY 07/29/19 08/24/22 History [-U Capsule (formulary)] Allergies Allergy/AdvReac Type Severity Reaction Status Date / Time No Known Allergies Allergy Verified 08/24/22 12:54 Exam Intake and Output 08/23/22 08/24/22 08/24/22 22:59 06:59 14:59 Other: Weight 74.389 kg - OBG Physical Exam Abdomen: bowel sounds normal, no diffuse tenderness, no bruit present, no guarding noted, no hepatomegaly, no splenomegaly, no mass Vulva: both: normal Vagina: normal moisture, no discharge Cervix: no lesion (Cervix is 4 cm 80% effaced -2 station), no discharge Uterus: enlarged Results labs show she is O positive, rubella immune, RPR nonreactive, HIV is nonreactive, hepatitis B and C are negative, group B strep was negative, Glucola was normal, most recent ultrasound per [facility] showed 5 lbs. 7 oz. with normal anatomy Assessment and Plan Assessment: This is a pleasant 32-year-old 3 para 2 female 39-4/7 weeks gestation with early labor. I discussed with the patient staying here versus going home however it does appear she's in early labor therefore we'll admit for delivery. (1) 39 weeks gestation of Current Visit: Yes Status: Acute Code(s): Z3A.39 - 39 WEEKS GESTATION OF SNOMED Code(s): 24776801 (2) Normal labor Current Visit: Yes Status: Acute Code(s): O80 - ENCOUNTER FOR FULL-TERM UNCOMPLICATED DELIVERY; Z37.9 - OUTCOME OF DELIVERY, UNSPECIFIED SNOMED Code(s): 72140816
[2022-08-24 14:23] LABS: Basophils % (A) 0 %; Eosinophils % (A) 0 %; HCT 39.3 % (34.0-46.0); HGB 12.8 gm/dL (11.4-16.0); Lymphocytes # (A) 1.7 k/uL (1.0-4.8); Lymphocytes % (A) 16 %; MCH 29.2 pg (25.0-35.0); MCHC 32.7 g/dL (31.0-37.0); MCV 89.4 fL (80.0-100.0); Mean Platelet Volume 8.3; Monocytes # (A) 0.6 k/uL (0-1.0); Monocytes % (A) 5 %; Neutrophils % (A) 77 %; Platelet Count 262 k/uL (150-450); RDW 13.5 % (11.5-15.5); WBC 10.5 k/uL (3.8-10.6)
[2022-08-24] MEDS ORDERED: fentaNYL (PF) 50 MCG/ML 5 ML AMP ONE (16:15)
[2022-08-24] MEDS ORDERED: SODIUM CHLORIDE 0.9% 100 ML BAG ONE (16:15)
[2022-08-24] MEDS ORDERED: ROPIVACAINE 5 MG/ML 20 ML AMPULE ONE (16:15)
[2022-08-24] MEDS ORDERED: ROPIVACAINE 225 MG, fentaNYL (PF). 450 MCG in SODIUM CHLORIDE 0.9% 171 ML EPIDURAL ONE (16:33)
--- NOTE | 2022-08-24 17:22 | P.PROBDLV ---
Vaginal Delivery Note - . Vaginal Delivery Note: Normal spontaneous vaginal delivery viable female infant Apgars 9 and 9 delivery time is 1701 hrs. Please see dictated H&P for intimate details of this patient's admission. Brief summary this is a pleasant 32-year-old 3 para 2 female 39-4/7 weeks gestation who presents to labor and delivery with complaints of vaginal spotting and occasional contractions. Patient's found to have cervical change from the office is found to be 4 cm dilated. Patient is artificial rupture membranes for clear fluid. Labor is augmented with Pitocin. Patient requests an epidural for pain control and this is given with good relief. Patient thereafter quickly progresses to complete pushes the head to the perineum. Posterior perineum is supported we have controlled delivery of 's head over the intact perineum. Mouth and nares are bulb suctioned. 's head is straight occiput anterior presentation. There is no evidence of a nuchal cord. With gentle downward traction we then have deliver the anterior and posterior shoulder and rest this infant's body. This is a vigorous viable female infant Apgars are 9 and 9 delivery time is 1701 hrs. Infant has spontaneous respirations and good cry. Due to history of previous jaundice with a previous child, the cord is immediately clamped and cut. Infant is laid on the mother's abdomen. The placenta is then spontaneously delivered intact. Estimated blood loss is 100 mL. There are superficial bilateral periurethral lacerations that did not require repair. All counts correct 3. There are no complications. Infant and mother stable delivery
[2022-08-24] MEDS ORDERED: diphenhydrAMINE 50 MG/ML 1 ML VIAL IVP PRN (17:24)
[2022-08-24] MEDS ORDERED: ZOLPIDEM 5 MG TAB PO PRN (17:24)
[2022-08-24] MEDS ORDERED: SIMETHICONE 80 MG CHEWABLE PO PRN (17:24)
[2022-08-24] MEDS ORDERED: ACETAMINOPHEN TAB 325 MG TAB PO PRN (17:24)
[2022-08-24] MEDS ORDERED: LANOLIN CREAM 5 GM TUBE TOPICAL PRN (17:24)
[2022-08-24] MEDS ORDERED: bisacodyL 10 MG SUPP RECTAL PRN (17:24)
[2022-08-24] MEDS ORDERED: BENZOCAINE/MENTHOL SPRAY 1 GM/SPRAY AEROSOL TOPICAL PRN (17:24)
[2022-08-24] MEDS ORDERED: diphenhydrAMINE 25 MG CAP PO PRN (17:24)
[2022-08-24] MEDS ORDERED: HYDROCORTISONE 2.5% RECTAL CREAM 30 GM TUBE RECTAL PRN (17:24)
[2022-08-24] MEDS: SENNOSIDES-DOCUSATE SODIUM 1 EACH TAB PO SCH (20:59)
[2022-08-24] MEDS: IBUPROFEN 600 MG TAB PO PRN (20:59)
[2022-08-25] MEDS: IBUPROFEN 600 MG TAB PO PRN ×2 (04:51→10:30)
--- NOTE | 2022-08-25 07:04 | P.PNOBGVD ---
Subjective - Subjective Patient reports: Reports appetite normal, Reports voiding normally, Reports pain well controlled, Reports ambulating normally : doing well Objective - Latest Vital Signs Latest vital signs: Vital Signs Temp Pulse Resp BP 08/25/22 00:00 98.5 F 76 16 110/72 08/24/22 19:15 58 L 16 113/77 08/24/22 19:06 57 L 16 115/75 08/24/22 18:15 98.0 F 70 16 111/66 08/24/22 18:00 72 16 105/65 08/24/22 17:44 68 15 121/69 08/24/22 17:32 71 16 124/61 08/24/22 17:15 74 16 124/67 Intake and Output 08/24/22 08/25/22 08/25/22 22:59 06:59 14:59 Intake Total 480 Output Total 225 Balance -225 480 Intake: Oral 480 Output: Estimated Blood Loss 100 Output, Quantitative 125 Blood Loss Other: # Voids 1 2 Weight 74.389 kg - Exam Lungs: bilateral: normal Chest: Normal S1, Normal S2 Extremities: Present: normal Abdomen: Present: normal appearance, soft Uterus: Present: normal, firm - Labs Labs: Abnormal Lab Results - Last 24 Hours (Table) 08/24/22 Range/Units 13:50 Neutrophils # 8.0 H (1.3-7.7) k/uL Assessment and Plan Assessment: day #1. Patient is resting without complaints and wishes to go home. Vital signs are stable she is afebrile. Uterus is firm nontender and she is having normal lochia. My impression that this is a normal course. Plan is to continue routine care and discharge home later today. (1) 39 weeks gestation of Current Visit: Yes Status: Acute Code(s): Z3A.39 - 39 WEEKS GESTATION OF SNOMED Code(s): 46131794 (2) Normal labor Current Visit: Yes Status: Acute Code(s): O80 - ENCOUNTER FOR FULL-TERM UNCOMPLICATED DELIVERY; Z37.9 - OUTCOME OF DELIVERY, UNSPECIFIED SNOMED Code(s): 55294225
--- NOTE | 2022-08-25 07:07 | P.DS ---
Providers Date of admission: 08/24/22 13:35 Expected date of discharge: 08/25/22 Attending physician: Scout Garcia Primary care physician: Stated None - Discharge Diagnosis(es) (1) 39 weeks gestation of Current Visit: Yes Status: Acute (2) Normal labor Current Visit: Yes Status: Acute Hospital Course: Please see dictated H&P for intimate details of this patient's admission. In brief summary this is a pleasant 32-year-old 3 para 2 female 39-4/7 weeks gestation admitted to labor and delivery with complaints of spotting irregular contractions. Patient's found to be in active labor and quickly goes on to have a vaginal delivery viable female . Please see dictated delivery note. day #1 patient's felt to be stable for discharge home follow up with me in 6 weeks. Procedures: Normal spontaneous vaginal delivery Patient Condition at Discharge: Good Plan - Discharge Summary New Discharge Prescriptions: New Ibuprofen [Motrin] 600 mg PO Q6HR PRN #30 tab PRN Reason: Mild Pain (Scale 1 To 3) No Action Cvc-Icff-Xmgcw Acid [-U Capsule (formulary)] 1 cap PO DAILY Discharge Medication List Ban-Hxki-Msjjr Acid [-U Capsule (formulary)] 1 cap PO DAILY 07/29/19 [History] Ibuprofen [Motrin] 600 mg PO Q6HR PRN #30 tab 08/25/22 [Rx] Follow up Appointment(s)/Referral(s): Scout Garcia MD [STAFF PHYSICIAN] - 6 Weeks Patient Instructions/Handouts: Vaginal Delivery (DC) Activity/Diet/Wound Care/Special Instructions: No intercourse or anything per vagina for 6 weeks. Please call if any fever, chills, excessive vaginal bleeding, and/or abdominal pain. Discharge Disposition: HOME SELF-CARE
[2022-08-25] MEDS: SENNOSIDES-DOCUSATE SODIUM 1 EACH TAB PO SCH (08:34)
[2022-08-25 09:03] LABS: Basophils % (A) 0 %; Eosinophils # (A) 0.1 k/uL (0-0.7); Eosinophils % (A) 1 %; HCT 39.1 % (34.0-46.0); HGB 12.8 gm/dL (11.4-16.0); Lymphocytes # (A) 1.5 k/uL (1.0-4.8); Lymphocytes % (A) 14 %; MCH 29.4 pg (25.0-35.0); MCHC 32.8 g/dL (31.0-37.0); MCV 89.7 fL (80.0-100.0); Mean Platelet Volume 8.7; Monocytes # (A) 0.5 k/uL (0-1.0); Monocytes % (A) 4 %; Neutrophils % (A) 80 %; Platelet Count 205 k/uL (150-450); RBC 4.36 m/uL (3.80-5.40); WBC 11.3 k/uL (3.8-10.6)
[2022-08-25 16:03] VITALS: BP 121/74; PULSE 77; RESP 16; TEMP 98.6
== END 2022-08-25 17:27 | disposition home or self-care (01) | DRG 807 ==
LOC: FBPOP 12:30 → 4FBP 13:35
PROVIDERS: ADMIT Obstetrics & Gynecology; ATTEND Obstetrics & Gynecology
PROC: 10E0XZZ Delivery of Products of Conception, External Approach (ICD-10-PCS; principal; 2022-08-24)
PROC: 10907ZC Drainage of Amniotic Fluid, Therapeutic from Products of Conception, Via Natural or Artificial Opening (ICD-10-PCS; principal; 2022-08-24)
DX: O71.82 Other specified trauma to perineum and vulva (principal); Z3A.39 39 weeks gestation of pregnancy; Z37.0 Single live birth
CPT/HCPCS: 59025; 84112; 85025; 86850; 86900; 86901; 99213

== ENCOUNTER → 2022-09-13 | Outpatient (CLI) | payer MEDICAID ==
[2022-09-13 15:22] LABS: Basophils # (A) 0.06 X 10*3/uL (0.00-0.10); Basophils % (A) 0.8 %; Eosinophils # (A) 0.29 X 10*3/uL (0.04-0.35); Eosinophils % (A) 3.8 %; HCT 42.2 % (37.2-46.3); HGB 13.2 g/dL (12.0-15.0); Immature Grans, Automated 0.5 %; Lymphocytes # (A) 2.05 X 10*3/uL (0.90-5.00); Lymphocytes % (A) 26.8 %; MCH 29.3 pg (27.0-32.0); MCHC 31.3 g/dL (32.0-37.0); MCV 93.8 fL (80.0-97.0); Mean Platelet Volume 9.4 fL (9.5-12.2); Monocytes # (A) 0.45 X 10*3/uL (0.20-1.00); Monocytes % (A) 5.9 %; NRBC Per 100 WBC 0 /100 WBCS (0.0-0.0); Neutrophils # (A) 4.75 X 10*3/uL (1.80-7.70); Neutrophils % (A) 62.2 %; Platelet Count 358 X 10*3/uL (140-440); WBC 7.64 X 10*3/uL (4.50-10.00)
[2022-09-13 15:41] LABS: ALT 28 U/L (8-44); AST 23 U/L (13-35); African American GFR (CKD) 109.3 (60.0-200.0); Albumin 3.9 g/dL (3.8-4.9); Albumin/Globulin Ratio 1.41 (1.60-3.17); Alkaline Phosphatase 102 U/L (41-126); BUN/Creat Ratio 15.16 Ratio (12.00-20.00); Blood Urea Nitrogen 12.4 mg/dL (9.0-27.0); Calcium 9.2 mg/dL (8.7-10.3); Carbon Dioxide 26.5 mmol/L (20.0-27.5); Chloride 105 mmol/L (96-109); Globulin 2.8 g/dL (1.6-3.3); Glucose 72 mg/dL (70-110); LDL Cholesterol,Calculated 107.7 mg/dL (0.0-131.0); Non-African American GFR(CKD) 94.3 (60.0-200.0); Potassium 4.9 mmol/L (3.5-5.5); Sodium 142 mmol/L (135-145); Total Bilirubin <0.15 mg/dL (0.30-1.20); Total Protein 6.7 g/dL (6.2-8.2)
== END | disposition home or self-care (01) ==
LOC: LABWHC1 08:04
PROVIDERS: ATTEND Nurse Practitioner Family
DX: Z00.00 Encounter for general adult medical examination without abnormal findings (principal); F41.9 Anxiety disorder, unspecified; Z86.59 Personal history of other mental and behavioral disorders
CPT/HCPCS: 36415; 80053; 80061; 84439; 84443; 85025

== ENCOUNTER → 2023-10-16 | Outpatient (CLI) | payer BC, MEDICAID ==
--- NOTE | 2023-10-17 18:44 | MM ---
Reason for Exam: Screening (asymptomatic). Patient History: Menarche at age 12. First Full-Term at age 26. Maternal aunt had breast cancer, age 60. Mother had breast cancer, age 35. Sister had breast cancer, age 28. Mother tested for BRCA2 outcome was positive. Sister tested for BRCA2 outcome was positive. Tissue Density: The breasts are extremely dense, which lowers the sensitivity of mammography. Findings: Analyzed By CAD. The pattern is symmetrical. No suspicious groups of microcalcifications, spiculated or lobular masses, architectural distortion or other secondary signs of malignancy are mammographically apparent. Overall Assessment: Negative, BI-RAD 1 Management: Screening Mammogram of both breasts in 1 year. A negative mammogram report should not preclude additional follow up of suspicious palpable abnormalities. Patient should continue monthly self breast exam. A clinical breast exam by your physician is recommended on an annual basis and results should be correlated with mammographic findings. Note on Jie scores and lifetime risk: 1. A Jie score greater than 3% is considered moderate risk. If this is the case, consider specialist referral to assess eligibility for a risk reducing agent. 2. If overall lifetime risk for the development of breast cancer is 20% or higher, the patient may qualify for future screening with alternating mammogram and breast MRI. Electronically signed and approved by: Mitul Leo D.O. Radiologis
== END | disposition home or self-care (01) ==
LOC: RADMAMWWP 12:14
PROVIDERS: ATTEND Family Medicine
DX: Z12.31 Encounter for screening mammogram for malignant neoplasm of breast (principal); Z80.3 Family history of malignant neoplasm of breast
CPT/HCPCS: 77063; 77067